=== PATIENT | female | born 1955 | race Caucasian/White ===

== ENCOUNTER 2018-02-19 08:33 | Emergency (ER) | payer OTHER, SELFPAY ==
[2018-02-19 08:40] VITALS: BP 120/68; PULSE 75; RESP 14; TEMP 36.9; O2SAT 99
--- NOTE | 2018-02-19 09:56 | ED.BACK ---
HPI - Back Pain/Injury General Chief Complaint: Back Pain/Injury Stated Complaint: LOW BACK PAIN Time Seen by Provider: 02/19/18 09:44 Source: patient Mode of arrival: ambulatory Limitations: no limitations History of Present Illness HPI Narrative: Patient is a 62-year-old female who presents with all right side of back pain. 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 She has since had numbness and tingling in her buttock on increased back pain whenever she moves. She has no weakness on a no changes in bowel or bladder habits. She does have known L4-L5 disc problems. MD Complaint: back pain Related Data Previous Rx's Medication Instructions Recorded diazepam [Valium] 5 mg PO Q12HR PRN #10 tab 02/19/18 meloxicam [Mobic] 7.5 mg PO DAILY PRN #20 tab 02/19/18 ondansetron [Zofran ODT] 4 mg PO Q6HR PRN #10 tab 02/19/18 oxycodone-acetaminophen 1 tab PO Q6H PRN #10 tab 02/19/18 Allergies Allergy/AdvReac Type Severity Reaction Status Date / Time amoxicillin [From Augmentin] Allergy Verified 02/19/18 08:40 clavulanic acid Allergy Verified 02/19/18 08:40 [From Augmentin] sulfamethoxazole Allergy Verified 02/19/18 08:40 [From Septra] Tetracyclines Allergy Verified 02/19/18 08:40 trimethoprim [From Septra] Allergy Verified 02/19/18 08:40 Review of Systems Review of Systems GENERAL: Denies chills, fatigue, malaise, fever, sweats, travel HEENT: Denies sinus pain, ear pain, sore throat RESPIRATORY: Denies dyspnea, cough CARDIOVASCULAR: Denies chest pain, palpitations, orthopnea, edema GASTROINTESTINAL: Denies nausea, vomiting, abdominal pain : Denies dysuria, frequency, incontinence,urinary retention, flank pain. MUSCULOSKELETAL: See HPI SKIN: No rash, no erythema, no pruritus NEUROLOGIC: See HPI Denies weakness, dizziness, headache PSYCHIATRIC: No concerning psychosocial issues. 12 point review of systems is negative except for those stated above and HPI PFSH Medical History Back pain (Acute) Exam Initial Vital Signs Initial Vital Signs: Vital Signs Temperature 98.4 F 02/19/18 08:40 Pulse Rate 75 07/07/18 08:40 Respiratory Rate 14 02/19/18 08:40 Blood Pressure 120/68 02/19/18 08:40 Pulse Oximetry 99 02/19/18 08:40 Const General: cooperative, healthy appearing and acute distress (In pain) Neck Neck: normal visual inspection, full ROM and no meningeal signs Chest Chest: normal inspection of the chest Resp Effort & Inspection: normal respiratory effort and able to speak in complete sentences Auscultation: clear to auscultation bilaterally Cardio Rate: regular rate Rhythm: regular rhythm Heart Sounds: no click, no gallops, no murmurs and no rubs Pulses: normal peripheral pulses Back/Spine/Pelvis Thoracic/Lumbar Spine: No lumbar spinal tenderness and other (Tender in right buttock mild right lumbar lateral pain) Other: Sensation in inner thighs intact Neuro Motor: muscle tone normal throughout and strength 5/5 throughout Course Orders Ordered: Discontinued Medications Diazepam (Valium) 5 mg PO NOW ONE Stop: 02/19/18 10:10 Last Admin: 02/19/18 10:36 Dose: 5 mg Ketorolac Tromethamine (Toradol) 60 mg IM NOW ONE Stop: 02/19/18 10:10 Last Admin: 02/19/18 10:32 Dose: 60 mg Vital Signs - 8 hr 02/19/18 08:40 02/19/18 11:05 Temperature 98.4 F Pulse Rate 75 77 Respiratory Rate 14 16 Blood Pressure 120/68 129/77 H Pulse Oximetry 99 98 Discharge Plan Departure Patient Disposition: Home, Self-Care Clinical Impression: Strain of lumbar region Discharge Date/Time: 02/19/18 11:08 Interventions: ED Discharge Assessment Last Done: 02/19/18 11:05 Instructions: DI for Back Pain With Sciatica Activity Restrictions/Additional Instructions: *You have been diagnosed with back pain *What to do: Increase activity as tolerated, light activity is encouraged, may require physical therapy and/or MRI as an outpatient please discussed these options with your primary care provider *Continue to take medications as directed -the Zofran every 6 hr if needed for nausea or vomiting or before pain medication -Mobic once a day, do not take ibuprofen, Aleve, Advil or naproxen or other NSAIDs with this medication -Percocet 1 tablet every 6 hr if needed for severe -Valium 1 tablet every 12 hr only if needed for muscle spasm *Follow up with your primary care provider in 2-3 days *Return to ER if you should have weakness, changes in bowel or bladder habits or any new, worsening or concerning symptoms CONTROLLED SUBSTANCE DISCHARGE (Narcotoic/benzodiazepine/Flexeril/Phenergan) 1. You have been prescribed narcotic medications, it does have acetaminophen/Tylenol/paracetamol in it so do not take extra Tylenol or Tylenol containing products 2. Please understand that we cannot provide further refills of narcotics, benzodiazepines or controlled substances through the ED and her pain management will need to be through your provider. 3. While on these medications you cannot drive or operate heavy machinery. 4. You cannot sign legal documents or perform any duties such as this. 5. As long as you're taking opiate pain medications he should also be taking a stool softener such as Colace, Dulcolax, MiraLAX or prune juice, to help avoid constipation. Prescriptions: New meloxicam [Mobic] 7.5 mg tablet 7.5 mg PO DAILY PRN (Reason: pain) Qty: 20 RF: 0 oxycodone-acetaminophen 5-300 mg tablet 1 tab PO Q6H PRN (Reason: pain) Qty: 10 RF: 0 diazepam [Valium] 5 mg tablet 5 mg PO Q12HR PRN (Reason: muscle spasm) Qty: 10 RF: 0 ondansetron [Zofran ODT] 4 mg tablet,disintegrating 4 mg PO Q6HR PRN (Reason: nausea and vomiting) Qty: 10 RF: 0
[2018-02-19] MEDS: KETOROLAC 60 MG/2 ML VIAL IM (10:32)
[2018-02-19] MEDS: diazePAM 5 MG TABLET PO (10:36)
[2018-02-19 11:05] VITALS: BP 129/77; PULSE 77; RESP 16; O2SAT 98
== END 2018-02-19 11:08 | disposition home or self-care (01) ==
PROVIDERS: Emergency Provider Emergency Medicine
DX: S39.012A Strain of muscle, fascia and tendon of lower back, initial encounter (principal); T73.3XXA Exhaustion due to excessive exertion, initial encounter
CPT/HCPCS: 96372; 99282; 99283; J1885

== ENCOUNTER → 2022-03-20 19:00 | Outpatient (CLI) | payer MEDICARE, OTHER, SELFPAY ==
--- NOTE | 2022-03-20 19:04 | DI.MRI.S_ITS ---
PROCEDURE: MR LUMBAR SPINE WO CON INDICATIONS: Radiculopathy, lumbar region TECHNIQUE: Noncontrast sagittal T1 spin echo and T2 fast echo, sagittal STIR, and T2 fast spin echo through the lumbar spine. In cases with scoliosis, additional coronal T2 fast spin echo may be performed. COMPARISON: None. FINDINGS: Image quality: Excellent. Alignment and Curvature: There is normal bony alignment. Bone Marrow: Marrow is of normal overall signal. No acute vertebral body compression fractures. Spinal Cord: Conus medullaris terminates at the L1 level. Visualized cord demonstrates normal signal and size. Paraspinous Soft Tissues: No paravertebral masses. T12-L1: Mild disc desiccation and height loss. Broad-based disc bulge. Moderate facet and ligamentum flavum hypertrophy. No canal stenosis. No foraminal stenosis. L1-L2: Moderate disc desiccation and height loss. Moderate facet and ligamentum flavum hypertrophy. No canal stenosis. Mild right foraminal narrowing. No left foraminal stenosis. L2-L3: Mild disc desiccation and height loss. Broad-based disc bulge. Mild facet and ligamentum flavum hypertrophy. No canal stenosis. No foraminal stenosis. L3-L4: Moderate disc desiccation and height loss. Broad-based disc bulge. Moderate facet and ligamentum flavum hypertrophy. Mild canal stenosis. Mild bilateral foraminal stenosis. L4-L5: Severe disc desiccation and height loss. Mild facet and ligamentum flavum hypertrophy. No canal stenosis. Mild bilateral foraminal stenosis. L5-S1: Moderate disc desiccation and height loss. Mild vacuum disc phenomenon. Moderate facet sclerosis. No canal stenosis. Moderate right foraminal stenosis. No left neural foraminal stenosis. Moderate right neural foraminal stenosis. IMPRESSION: 1. Disc desiccation height loss throughout the lumbar spine most severe at L4-5. 2. No significant canal stenosis of the lumbar spine. 3. Moderate right foraminal stenosis at L5-S1. No other significant foraminal narrowing of the lumbar spine. Dictated by: Teresa Gentile M.D. on 03/23/2022 at 9:56 Approved by: Teresa Gentile M.D. on 03/23/2022 at 10:06
== END ==
PROVIDERS: PCP Family Medicine; Referring Provider Physical Medicine & Rehabilitation; Visit Provider Physical Medicine & Rehabilitation
DX: M54.16 Radiculopathy, lumbar region (principal); M48.07 Spinal stenosis, lumbosacral region
CPT/HCPCS: 72148